=== PATIENT | female | born 1965 | race Caucasian/White ===

== ENCOUNTER 2025-02-12 10:48 | Outpatient (CLI) | payer OTHER | END 2025-02-12 10:49 | disposition home or self-care (01) | LOC: LAB 10:48 → EKG 10:48 → LAB 10:49 | DX: M21.061 Valgus deformity, not elsewhere classified, right knee (principal); M17.11 Unilateral primary osteoarthritis, right knee; Z01.818 Encounter for other preprocedural examination ==